=== PATIENT | female | born 2000 | race Caucasian/White ===

== ENCOUNTER 2024-05-09 23:24 | Emergency (ER) | payer SELFPAY ==
[2024-05-10 00:57] LABS: Bilirubin Negative (Negative); Blood, Urine Negative (Negative); Clarity Clear (Clear); Glucose, Urine (Dipstick) Negative (Negative); Ketone, Urine Negative (Negative); Leukocyte Negative (Negative); Nitrite Negative (Negative); Protein, Urine (Dipstick) Negative (Neg-Trace); Specific Gravity, Urine 1.025 (1.005-1.030); Urobilinogen 0.2 mg/dL (Less than 2); pH, Urine 6.5 (5.0-9.0)
[2024-05-10 00:59] LABS: Pregnancy Test - Urine (BHCG) Negative (Negative)
[2024-05-10 01:00] LABS: Pregu Control Background? CLEAR/WHITE (CLR/WHITE); Pregu Control Bar Appear? YES (CONTROL BAR); Specific Gravity 1.018 (1.002-1.036)
[2024-05-10 01:05] LABS: Bacteria/HPF Rare-Few HPF (None Seen); CAUTI Indications for Culture Pelvic or flank pain; RBC/HPF 0-3 HPF (0-3); Squamous Epithelial 0-3 HPF (0-3); WBC/HPF 0-3 HPF (0-3)
[2024-05-10 01:06] LABS: Urine Culture Reflex No No
== END 2024-05-10 01:25 | disposition home or self-care (01) ==
LOC: MADERS 23:24
DX: R10.30 Lower abdominal pain, unspecified (principal)
CPT/HCPCS: 81001; 81025; 99284